=== PATIENT | female | born 1985 | race Hispanic/Latino ===

== ENCOUNTER 2020-12-13 17:37 | Emergency (ER) | payer SELFPAY ==
[~2020-12-13] VITALS: Ht 152.4 cm; Wt 70.3 kg
[2020-12-13] MEDS ORDERED: SODIUM CHLORIDE 0.9% 1000ML 1,000 ML IV STA (18:44)
[2020-12-13] MEDS ORDERED: DIPHENHYDRAMINE HCL INJ 50 MG/ML VIAL IV ONE (18:45)
[2020-12-13] MEDS ORDERED: DEXAMETHASONE SOD PHOS INJ 4 MG/ML VIAL IV ONE (18:45)
[2020-12-13] MEDS ORDERED: KETOROLAC TROMETHAMINE 30 MG/ML VIAL IV ONE (18:45)
[2020-12-13] MEDS ORDERED: FAMOTIDINE 20 MG/2 ML VIAL IV ONE (18:45)
[2020-12-13] MEDS ORDERED: PROMETHAZINE 25MG/ NS 50ML (IV) IV ONE (18:45)
[2020-12-13] MEDS ORDERED: DEXAMETHASONE SOD PHOS INJ 4 MG/ML VIAL ONE (19:07)
[2020-12-13] MEDS ORDERED: KETOROLAC TROMETHAMINE 30 MG/ML VIAL ONE (19:08)
[2020-12-13] MEDS ORDERED: PROMETHAZINE HCL (IM) 25 MG/ML VIAL IM ONE (19:08)
[2020-12-13] MEDS ORDERED: SODIUM CHLORIDE 0.9% 50ML 50 ML ONE (19:09)
[2020-12-13] MEDS ORDERED: SODIUM CHLORIDE 0.9% 1000ML 1,000 ML ONE (19:09)
[2020-12-13] MEDS ORDERED: ZANAFLEX4 MG PO (20:22)
[2020-12-13] MEDS ORDERED: ESGIC 50-325-41 EACH PO (20:22)
[2020-12-13] MEDS ORDERED: ONDANSETRON ODT4 MG PO (20:26)
[2020-12-13 20:47] VITALS: BP 129/72
== END 2020-12-13 20:47 | disposition home or self-care (01) ==
LOC: FSED 17:43
DX: M54.2 Cervicalgia (principal); M43.6 Torticollis; G44.209 Tension-type headache, unspecified, not intractable; M79.10 Myalgia, unspecified site
CPT/HCPCS: 70450; 71046; 80053; 81003; 81025; 85025; 99283; J1100; J1200; J1885; J2550; J7030